=== PATIENT | male | born 1980 | race Hispanic/Latino ===

== ENCOUNTER 2022-07-08 15:58 | Inpatient (IN) | payer OTHER ==
[~2022-07-08] VITALS: Ht 177.8 cm; Wt 86.2 kg
[2022-07-08] MEDS ORDERED: ONDANSETRON 4MG INJ IVP ONE (16:30)
[2022-07-08 16:43] LABS: BASOPHILS % (AUTO) 0.2 % (0.0-5.0); EOSINOPHILS % (AUTO) 0.3 % (0.0-8.0); HEMATOCRIT 46.4 % (42-54); LYMPHOCYTES % (AUTO) 10.9 % (21.0-51.0); MEAN CORPUSCULAR HEMOGLOBIN 29.2 pg (27.0-33.0); MEAN CORPUSCULAR HGB CONC 33.2 g/dL (32.0-36.0); MONOCYTES % (AUTO) 5.9 % (3.0-13.0); NEUTROPHILS % (AUTO) 82.1 % (40.0-77.0); PLATELET COUNT (AUTO) 188 K/uL (130-400); RED BLOOD CELL COUNT(AUTO) 5.27 MIL/uL (4.50-6.20); RED CELL DISTRIBUTION WIDTH 13.3 % (11.0-15.5); WHITE BLOOD COUNT (AUTO) 18.9 K/uL (4.8-10.8)
[2022-07-08 17:03] LABS: POTASSIUM 3.6 mmol/L (3.5-5.1)
[2022-07-08 17:08] LABS: TOTAL PROTEIN, SERUM 6.8 g/dL (6.0-8.3)
[2022-07-08] MEDS ORDERED: MORPHINE 4 MG SYG IVP ONE (18:00)
[2022-07-08] MEDS ORDERED: HYDROMORPHONE 1 MG INJ IVP ONE (19:00)
[2022-07-08] MEDS ORDERED: INSULIN REGULAR IV SCH ×2 (21:30)
[2022-07-08] MEDS ORDERED: HUMAN IV SCH ×2 (21:30)
[2022-07-08] MEDS ORDERED: [UNRECOGNIZED DRUG - OTHER] IV SCH ×2 (21:30)
[2022-07-08] MEDS ORDERED: INSULIN HUMULIN R 100 UNIT/ML 3ML ONE (21:32)
[2022-07-08] MEDS ORDERED: ACETAMINOPHEN 325 MG TAB PO PRN (22:00)
[2022-07-08] MEDS: LACTATED RINGERS 1000ML 1,000 ML IV SCH (23:08)
[2022-07-09] MEDS: MORPHINE 2 MG SYG IV PRN (01:34)
[2022-07-09 02:30] VITALS: BP 155/95
[2022-07-09 03:05] LABS: APPEARANCE,URINE CLEAR (CLEAR); BILIRUBIN,URINE NEGATIVE (NEGATIVE); COLOR,URINE YELLOW (YELLOW); GLUCOSE, URINE (UA) NEGATIVE (NEGATIVE); KETONES,URINE NEGATIVE (NEGATIVE); LEUKOCYTE ESTERASE ,URINE NEGATIVE Leu/uL (NEGATIVE); NITRATE,URINE NEGATIVE (NEGATIVE); OCCULT BLOOD,URINE NEGATIVE (NEGATIVE); PH,URINE 5.5 (5.0-8.0); PROTEIN,URINE 10 mg/dL (NEGATIVE); UROBILINOGEN,URINE 0.2 mg/dL (0.2-1.0)
[2022-07-09 03:11] LABS: AMPHET/METH SCREEN,URINE NEGATIVE (NEGATIVE); BARBITURATE SCREEN, URINE NEGATIVE (NEGATIVE); BENZODIAZEPINES SCREEN,URINE NEGATIVE (NEGATIVE); CANNABINOID SCREEN,URINE POSITIVE (NEGATIVE); COCAINE SCREEN,URINE NEGATIVE (NEGATIVE); OPIATE SCREEN,URINE POSITIVE (NEGATIVE); PHENCYCLIDINE SCREEN,URINE NEGATIVE (NEGATIVE)
[2022-07-09 04:00] VITALS: BP 140/81
[2022-07-09] MEDS: HYDROMORPHONE 0.5 MG SYG (0.5MG/0.5ML) IV PRN ×2 (04:10→08:24)
[2022-07-09] MEDS: LACTATED RINGERS 1000ML 1,000 ML IV SCH ×3 (04:40→18:07)
[2022-07-09 06:15] LABS: BASOPHILS % (AUTO) 0.1 % (0.0-5.0); HEMATOCRIT 49.3 % (42-54); LYMPHOCYTES % (AUTO) 5.1 % (21.0-51.0); MEAN CORPUSCULAR HGB CONC 33.1 g/dL (32.0-36.0); MEAN CORPUSCULAR VOLUME 87.6 fL (79-99); MONOCYTES % (AUTO) 5.5 % (3.0-13.0); NEUTROPHILS % (AUTO) 88.8 % (40.0-77.0); PLATELET COUNT (AUTO) 206 K/uL (130-400); RED BLOOD CELL COUNT(AUTO) 5.63 MIL/uL (4.50-6.20); RED CELL DISTRIBUTION WIDTH 13.5 % (11.0-15.5); WHITE BLOOD COUNT (AUTO) 15.7 K/uL (4.8-10.8)
[2022-07-09 06:19] LABS: HEMOGLOBIN A1C 5.6 % (4.0-6.0)
[2022-07-09 06:27] LABS: CREATININE 0.8 mg/dL (0.5-1.5); MAGNESIUM 1.7 mg/dL (1.80-2.40); PHOSPHORUS 3.5 mg/dL (2.5-4.9)
[2022-07-09 08:00] VITALS: BP 142/94
[2022-07-09] MEDS: FAMOTIDINE 20MG VIAL IV SCH ×2 (08:23→20:13)
[2022-07-09] MEDS: ENOXAPARIN SODIUM 40 MG/0.4 ML SYRINGE SQ SCH (08:23)
[2022-07-09] MEDS ORDERED: HYDROMORPHONE 0.5 MG SYG (0.5MG/0.5ML) IVP ONE (10:00)
[2022-07-09 12:00] VITALS: BP 151/96
[2022-07-09] MEDS: HYDROMORPHONE 1 MG INJ IVP PRN ×3 (15:01→23:50)
[2022-07-09 16:00] VITALS: BP 154/97
[2022-07-09 20:00] VITALS: BP 157/90
[2022-07-10] VITALS: BP 153/91
[2022-07-10] MEDS: LACTATED RINGERS 1000ML 1,000 ML IV SCH (00:40)
[2022-07-10] MEDS: HYDROMORPHONE 1 MG INJ IVP PRN ×4 (03:53→23:05)
[2022-07-10 04:00] VITALS: BP 146/84
[2022-07-10 05:49] LABS: BASOPHILS % (AUTO) 0.4 % (0.0-5.0); EOSINOPHILS % (AUTO) 0.4 % (0.0-8.0); LYMPHOCYTES % (AUTO) 4.8 % (21.0-51.0); MEAN CORPUSCULAR HEMOGLOBIN 29.6 pg (27.0-33.0); MEAN CORPUSCULAR HGB CONC 32.9 g/dL (32.0-36.0); MEAN CORPUSCULAR VOLUME 89.9 fL (79-99); MONOCYTES % (AUTO) 5.4 % (3.0-13.0); NEUTROPHILS % (AUTO) 88.5 % (40.0-77.0); PLATELET COUNT (AUTO) 171 K/uL (130-400); RED BLOOD CELL COUNT(AUTO) 5.67 MIL/uL (4.50-6.20); RED CELL DISTRIBUTION WIDTH 13.7 % (11.0-15.5); WHITE BLOOD COUNT (AUTO) 22.3 K/uL (4.8-10.8)
[2022-07-10 06:13] LABS: ALBUMIN 2.8 g/dL (3.5-5.0); CREATININE 1.1 mg/dL (0.5-1.5); MAGNESIUM 1.6 mg/dL (1.80-2.40); PHOSPHORUS 2.5 mg/dL (2.5-4.9); POTASSIUM 3.9 mmol/L (3.5-5.1)
[2022-07-10 08:00] VITALS: BP 146/95
[2022-07-10] MEDS: ENOXAPARIN SODIUM 40 MG/0.4 ML SYRINGE SQ SCH (08:41)
[2022-07-10] MEDS: FAMOTIDINE 20MG VIAL IV SCH ×2 (08:41→19:58)
[2022-07-10 12:00] VITALS: BP 151/97
[2022-07-10 16:00] VITALS: BP 141/90
[2022-07-10] MEDS: ACETAMINOPHEN 325 MG TAB PO PRN (16:01)
[2022-07-10] MEDS: MORPHINE 2 MG SYG IV PRN (18:40)
[2022-07-10 20:00] VITALS: BP 144/88
[2022-07-11] VITALS (12 sets, daily range): BP systolic 100–155; BP diastolic 43–103
[2022-07-11] MEDS: HYDROMORPHONE 1 MG INJ IVP PRN ×4 (03:59→19:59)
[2022-07-11 05:19] LABS: BASOPHILS % (AUTO) 0.2 % (0.0-5.0); EOSINOPHILS % (AUTO) 0.1 % (0.0-8.0); HEMATOCRIT 42.8 % (42-54); LYMPHOCYTES % (AUTO) 4.7 % (21.0-51.0); MEAN CORPUSCULAR HGB CONC 32.7 g/dL (32.0-36.0); MEAN CORPUSCULAR VOLUME 88.6 fL (79-99); MONOCYTES % (AUTO) 5.3 % (3.0-13.0); NEUTROPHILS % (AUTO) 89.1 % (40.0-77.0); PLATELET COUNT (AUTO) 141 K/uL (130-400); RED BLOOD CELL COUNT(AUTO) 4.83 MIL/uL (4.50-6.20); RED CELL DISTRIBUTION WIDTH 13.4 % (11.0-15.5); WHITE BLOOD COUNT (AUTO) 18.8 K/uL (4.8-10.8)
[2022-07-11 05:30] LABS: ALBUMIN 2.3 g/dL (3.5-5.0); CREATININE 0.7 mg/dL (0.5-1.5); POTASSIUM 3.8 mmol/L (3.5-5.1); TOTAL PROTEIN, SERUM 5.9 g/dL (6.0-8.3)
[2022-07-11 07:38] LABS: INR 0.96 (0.85-1.15); PROTHROMBIN TIME 10.5 SEC (9.6-11.6)
[2022-07-11 07:39] LABS: PARTIAL THROMBOPLASTIN TIME 36.7 SEC (26.3-35.5)
[2022-07-11] MEDS ORDERED: IOHEXOL-350 50ML VIAL IV ONE (07:50)
[2022-07-11] MEDS ORDERED: 0.9%NACL 50ML IV SCH (08:00)
[2022-07-11] MEDS: FAMOTIDINE 20MG VIAL IV SCH ×2 (08:29→19:59)
[2022-07-11] MEDS ORDERED: ZOSYN 3.375GM +NS 50ML IVPB SCH (10:00)
[2022-07-11] MEDS ORDERED: PROPOFOL 10 MG/ML 20ML VIAL IV ONE ×2 (11:03)
[2022-07-11] MEDS ORDERED: LIDOCAINE PF 100MG/5ML (2%) SYRINGE 5ML ONE (11:03)
[2022-07-11] MEDS ORDERED: FENTANYL CITRATE PF 50 MCG/1 ML 2ML VIAL ONE (11:26)
[2022-07-11] MEDS: 0.9%NACL 1000ML 1,000 ML IV SCH ×2 (13:21→21:59)
[2022-07-11] MEDS: ENOXAPARIN SODIUM 40 MG/0.4 ML SYRINGE SQ SCH (13:21)
[2022-07-11] MEDS: ZOSYN 3.375GM +NS 50ML IVPB SCH (21:22)
[2022-07-12] MEDS: HYDROMORPHONE 1 MG INJ IVP PRN ×4 (00:21→22:19)
[2022-07-12 04:15] VITALS: BP 139/91
[2022-07-12] MEDS: ZOSYN 3.375GM +NS 50ML IVPB SCH ×3 (04:15→20:28)
[2022-07-12 05:28] LABS: BASOPHILS % (AUTO) 0.4 % (0.0-5.0); EOSINOPHILS % (AUTO) 0.2 % (0.0-8.0); HEMATOCRIT 38.3 % (42-54); LYMPHOCYTES % (AUTO) 6.4 % (21.0-51.0); MEAN CORPUSCULAR HGB CONC 32.6 g/dL (32.0-36.0); MEAN CORPUSCULAR VOLUME 88.9 fL (79-99); NEUTROPHILS % (AUTO) 85.1 % (40.0-77.0); PLATELET COUNT (AUTO) 141 K/uL (130-400); RED BLOOD CELL COUNT(AUTO) 4.31 MIL/uL (4.50-6.20); RED CELL DISTRIBUTION WIDTH 13.4 % (11.0-15.5); WHITE BLOOD COUNT (AUTO) 16.2 K/uL (4.8-10.8)
[2022-07-12 05:44] LABS: ALBUMIN 1.9 g/dL (3.5-5.0); CREATININE 0.6 mg/dL (0.5-1.5); POTASSIUM 3.2 mmol/L (3.5-5.1); TOTAL PROTEIN, SERUM 5.7 g/dL (6.0-8.3)
[2022-07-12] MEDS: 0.9%NACL 1000ML 1,000 ML IV SCH ×2 (07:56→17:23)
[2022-07-12] MEDS: FAMOTIDINE 20MG VIAL IV SCH ×2 (07:56→20:28)
[2022-07-12] MEDS: ENOXAPARIN SODIUM 40 MG/0.4 ML SYRINGE SQ SCH (07:57)
[2022-07-12 08:15] VITALS: BP 147/76
[2022-07-12] MEDS: POTASSIUM CHLORIDE 20MEQ/100ML 100 ML IV PRN ×3 (11:08→23:15)
[2022-07-12 12:00] VITALS: BP 147/89
[2022-07-12 16:00] VITALS: BP 149/91
[2022-07-12 19:57] VITALS: BP 149/91
[2022-07-12 23:06] VITALS: BP 157/96
[2022-07-13] MEDS: POTASSIUM CHLORIDE 20MEQ/100ML 100 ML IV PRN ×2 (02:21→06:20)
[2022-07-13] MEDS: HYDROMORPHONE 1 MG INJ IVP PRN ×5 (02:22→21:32)
[2022-07-13] MEDS: 0.9%NACL 1000ML 1,000 ML IV SCH ×3 (02:22→12:44)
[2022-07-13 04:02] VITALS: BP 148/92
[2022-07-13] MEDS: ZOSYN 3.375GM +NS 50ML IVPB SCH ×3 (04:41→20:06)
[2022-07-13 05:54] LABS: BASOPHILS % (AUTO) 0.6 % (0.0-5.0); EOSINOPHILS % (AUTO) 0.6 % (0.0-8.0); LYMPHOCYTES % (AUTO) 8.3 % (21.0-51.0); MEAN CORPUSCULAR HGB CONC 32.9 g/dL (32.0-36.0); MEAN CORPUSCULAR VOLUME 88.2 fL (79-99); MONOCYTES % (AUTO) 10.4 % (3.0-13.0); NEUTROPHILS % (AUTO) 76.5 % (40.0-77.0); PLATELET COUNT (AUTO) 169 K/uL (130-400); RED BLOOD CELL COUNT(AUTO) 4.31 MIL/uL (4.50-6.20); RED CELL DISTRIBUTION WIDTH 13.3 % (11.0-15.5); WHITE BLOOD COUNT (AUTO) 17.7 K/uL (4.8-10.8)
[2022-07-13 06:14] LABS: CREATININE 0.7 mg/dL (0.5-1.5); MAGNESIUM 2.4 mg/dL (1.80-2.40); POTASSIUM 3.5 mmol/L (3.5-5.1); TOTAL PROTEIN, SERUM 5.9 g/dL (6.0-8.3)
[2022-07-13 07:30] VITALS: BP 152/90
[2022-07-13] MEDS: ENOXAPARIN SODIUM 40 MG/0.4 ML SYRINGE SQ SCH (09:15)
[2022-07-13] MEDS: FAMOTIDINE 20MG VIAL IV SCH ×2 (09:15→20:06)
[2022-07-13 11:30] VITALS: BP 136/99
[2022-07-13] MEDS: POTASSIUM CHLORIDE 20 MEQ/100 ML BAG IV SCH (11:30)
[2022-07-13 15:30] VITALS: BP 139/96
[2022-07-13 20:00] VITALS: BP 154/89
[2022-07-14] VITALS (25 sets, daily range): BP systolic 139–165; BP diastolic 80–101
[2022-07-14] MEDS: HYDROMORPHONE 1 MG INJ IVP PRN ×2 (02:16→06:53)
[2022-07-14] MEDS: ZOSYN 3.375GM +NS 50ML IVPB SCH ×3 (05:08→20:04)
[2022-07-14] MEDS: 0.9%NACL 1000ML 1,000 ML IV SCH ×3 (05:08→21:30)
[2022-07-14 05:50] LABS: HEMATOCRIT 37.7 % (42-54); MEAN CORPUSCULAR HEMOGLOBIN 28.9 pg (27.0-33.0); MEAN CORPUSCULAR HGB CONC 32.6 g/dL (32.0-36.0); MEAN CORPUSCULAR VOLUME 88.5 fL (79-99); RED BLOOD CELL COUNT(AUTO) 4.26 MIL/uL (4.50-6.20); RED CELL DISTRIBUTION WIDTH 13.7 % (11.0-15.5); WHITE BLOOD COUNT (AUTO) 19.6 K/uL (4.8-10.8)
[2022-07-14 06:29] LABS: ALBUMIN 1.9 g/dL (3.5-5.0); BILIRUBIN,DIRECT 0.3 mg/dL (0.0-0.3); CREATININE 0.7 mg/dL (0.5-1.5); MAGNESIUM 2.3 mg/dL (1.80-2.40); POTASSIUM 3.5 mmol/L (3.5-5.1)
[2022-07-14] MEDS: ENOXAPARIN SODIUM 40 MG/0.4 ML SYRINGE SQ SCH (07:45)
[2022-07-14] MEDS: POTASSIUM CHLORIDE 20 MEQ/100 ML BAG IV SCH (08:47)
[2022-07-14] MEDS: FAMOTIDINE 20MG VIAL IV SCH ×2 (08:48→20:04)
[2022-07-14] MEDS ORDERED: LIDOCAINE PF 100MG/5ML (2%) SYRINGE 5ML ONE (09:41)
[2022-07-14] MEDS ORDERED: GLYCOPYRROLATE 1 MG/5 ML SYRINGE ONE (09:41)
[2022-07-14] MEDS ORDERED: PROPOFOL 10 MG/ML 20ML VIAL IV ONE (09:41)
[2022-07-14] MEDS ORDERED: MIDAZOLAM HCL 1 MG/ML 2ML VIAL ONE (09:42)
[2022-07-14] MEDS ORDERED: FENTANYL CITRATE PF 50 MCG/1 ML 2ML VIAL ONE ×3 (09:42→11:22)
[2022-07-14] MEDS ORDERED: ROCURONIUM 10MG/1ML SYR 10 MG/ML ML ONE (09:42)
[2022-07-14] MEDS ORDERED: PHENYLEPHRINE HCL 10 MG/ML 1ML VIAL IV ONE (10:00)
[2022-07-14] MEDS ORDERED: LIDOCAINE HCL 1% 20 ML VIAL ONE (10:04)
[2022-07-14] MEDS ORDERED: BUPIVACAINE/PF 0.25% 30ML VIAL IJ ONE (10:04)
[2022-07-14] MEDS ORDERED: NEOSTIGMINE 5MG/5ML SYR IV ONE (10:45)
[2022-07-14] MEDS ORDERED: ONDANSETRON 4MG INJ ONE (10:54)
[2022-07-14] MEDS: MORPHINE 2 MG SYG IVP PRN ×3 (14:07→23:11)
[2022-07-14] MEDS ORDERED: ONDANSETRON 4MG INJ IVP PRN (16:00)
[2022-07-14] MEDS: ONDANSETRON 4MG INJ IV PRN (16:30)
[2022-07-15] VITALS (7 sets, daily range): BP systolic 144–153; BP diastolic 63–100
[2022-07-15] MEDS: ZOSYN 3.375GM +NS 50ML IVPB SCH ×3 (04:12→20:33)
[2022-07-15] MEDS: MORPHINE 2 MG SYG IVP PRN ×3 (04:14→21:49)
[2022-07-15 05:27] LABS: HEMATOCRIT 39.3 % (42-54); MEAN CORPUSCULAR HGB CONC 33.3 g/dL (32.0-36.0); MEAN CORPUSCULAR VOLUME 86.9 fL (79-99); RED BLOOD CELL COUNT(AUTO) 4.52 MIL/uL (4.50-6.20); RED CELL DISTRIBUTION WIDTH 13.6 % (11.0-15.5); WHITE BLOOD COUNT (AUTO) 19.2 K/uL (4.8-10.8)
[2022-07-15 05:47] LABS: BILIRUBIN,DIRECT 0.2 mg/dL (0.0-0.3); CREATININE 0.7 mg/dL (0.5-1.5); MAGNESIUM 2.3 mg/dL (1.80-2.40); POTASSIUM 3.4 mmol/L (3.5-5.1); TOTAL PROTEIN, SERUM 6.3 g/dL (6.0-8.3)
[2022-07-15] MEDS: POTASSIUM CHLORIDE 20MEQ/100ML 100 ML IV PRN (06:41)
[2022-07-15] MEDS: 0.9%NACL 1000ML 1,000 ML IV SCH ×3 (07:30→20:34)
[2022-07-15] MEDS: ONDANSETRON 4MG INJ IV PRN (08:34)
[2022-07-15] MEDS: FAMOTIDINE 20MG VIAL IV SCH ×2 (08:34→20:33)
[2022-07-15] MEDS: ENOXAPARIN SODIUM 40 MG/0.4 ML SYRINGE SQ SCH (08:40)
[2022-07-15] MEDS: POTASSIUM CHLORIDE 20 MEQ/100 ML BAG IV SCH (10:00)
[2022-07-15] MEDS ORDERED: KCL 20 MEQ ERTAB PO ONE (10:00)
[2022-07-15] MEDS ORDERED: POTASSIUM CHLORIDE 10% ELIXIR 20 MEQ/15 ML UDCUP PO PRN (20:00)
[2022-07-16] MEDS: 0.9%NACL 1000ML 1,000 ML IV SCH ×2 (02:44→05:34)
[2022-07-16] MEDS: MORPHINE 2 MG SYG IVP PRN ×4 (03:09→21:10)
[2022-07-16 03:45] VITALS: BP 148/90
[2022-07-16] MEDS: ZOSYN 3.375GM +NS 50ML IVPB SCH ×3 (03:57→21:09)
[2022-07-16 04:35] LABS: HEMATOCRIT 38.2 % (42-54); MEAN CORPUSCULAR HEMOGLOBIN 29.3 pg (27.0-33.0); MEAN CORPUSCULAR HGB CONC 33.5 g/dL (32.0-36.0); MEAN CORPUSCULAR VOLUME 87.4 fL (79-99); RED BLOOD CELL COUNT(AUTO) 4.37 MIL/uL (4.50-6.20); RED CELL DISTRIBUTION WIDTH 13.6 % (11.0-15.5); WHITE BLOOD COUNT (AUTO) 17.9 K/uL (4.8-10.8)
[2022-07-16 05:13] LABS: ALANINE AMINOTRANSFERASE 19 U/L (12-78); ALBUMIN 2.2 g/dL (3.5-5.0); ASPARTATE AMINOTRANSFERASE 22 U/L (10-37); BILIRUBIN,DIRECT 0.2 mg/dL (0.0-0.3); CARBON DIOXIDE 25 mmol/L (21-32); CHLORIDE 103 mmol/L (101-111); CREATININE 0.7 mg/dL (0.5-1.5); GLOMERULAR FILTR. RATE CALC 119 mL/min (>90); GLUCOSE,RANDOM 100 mg/dL (70-105); POTASSIUM 3.6 mmol/L (3.5-5.1); SODIUM SERUM 136 mmol/L (136-145); TOTAL PROTEIN, SERUM 6.3 g/dL (6.0-8.3); UREA NITROGEN, BLOOD 8 mg/dL (7-18)
[2022-07-16 05:23] LABS: LIPASE < 50 U/L (114-286)
[2022-07-16] MEDS: KCL 20 MEQ ERTAB PO PRN ×2 (05:34→15:49)
[2022-07-16 07:30] VITALS: BP 143/97
[2022-07-16] MEDS: FAMOTIDINE 20MG VIAL IV SCH ×2 (09:02→21:09)
[2022-07-16] MEDS: ENOXAPARIN SODIUM 40 MG/0.4 ML SYRINGE SQ SCH (09:03)
[2022-07-16] MEDS: POTASSIUM CHLORIDE 20 MEQ/100 ML BAG IV SCH (09:12)
[2022-07-16 11:30] VITALS: BP 152/93
[2022-07-16 15:30] VITALS: BP 143/95
[2022-07-16 20:23] VITALS: BP 151/86
[2022-07-16] MEDS: DOCUSATE SODIUM 100 MG CAP PO SCH (21:09)
[2022-07-16 23:35] VITALS: BP 144/94
[2022-07-17 03:37] VITALS: BP 142/85
[2022-07-17] MEDS: ZOSYN 3.375GM +NS 50ML IVPB SCH ×3 (04:15→20:34)
[2022-07-17 05:35] LABS: BASOPHILS % (AUTO) 0.2 % (0.0-5.0); EOSINOPHILS % (AUTO) 3.3 % (0.0-8.0); HEMATOCRIT 41.9 % (42-54); LYMPHOCYTES % (AUTO) 10.2 % (21.0-51.0); MEAN CORPUSCULAR HEMOGLOBIN 28.8 pg (27.0-33.0); MEAN CORPUSCULAR HGB CONC 33.2 g/dL (32.0-36.0); MEAN CORPUSCULAR VOLUME 86.9 fL (79-99); MONOCYTES % (AUTO) 8.2 % (3.0-13.0); NEUTROPHILS % (AUTO) 69.7 % (40.0-77.0); PLATELET COUNT (AUTO) 270 K/uL (130-400); RED BLOOD CELL COUNT(AUTO) 4.82 MIL/uL (4.50-6.20); RED CELL DISTRIBUTION WIDTH 13.5 % (11.0-15.5); WHITE BLOOD COUNT (AUTO) 17.5 K/uL (4.8-10.8)
[2022-07-17 06:01] LABS: CREATININE 0.9 mg/dL (0.5-1.5); MAGNESIUM 1.9 mg/dL (1.80-2.40); POTASSIUM 3.9 mmol/L (3.5-5.1)
[2022-07-17 08:00] VITALS: BP 139/87
[2022-07-17] MEDS: FAMOTIDINE 20MG VIAL IV SCH ×2 (09:25→20:34)
[2022-07-17] MEDS: DOCUSATE SODIUM 100 MG CAP PO SCH ×2 (09:25→20:34)
[2022-07-17] MEDS: ENOXAPARIN SODIUM 40 MG/0.4 ML SYRINGE SQ SCH (09:42)
[2022-07-17] MEDS: ACETAMINOPHEN 325 MG TAB PO PRN (09:59)
[2022-07-17] MEDS: POTASSIUM CHLORIDE 20 MEQ/100 ML BAG IV SCH (10:00)
[2022-07-17 12:00] VITALS: BP 131/94
[2022-07-17 16:00] VITALS: BP 154/77
[2022-07-17 20:19] VITALS: BP 139/83
[2022-07-17 23:44] VITALS: BP 134/83
[2022-07-18 03:29] VITALS: BP 140/85
[2022-07-18] MEDS: ZOSYN 3.375GM +NS 50ML IVPB SCH ×2 (04:11→12:51)
[2022-07-18 05:18] LABS: BASOPHILS % (AUTO) 0.9 % (0.0-5.0); HEMATOCRIT 41.5 % (42-54); LYMPHOCYTES % (AUTO) 13.1 % (21.0-51.0); MEAN CORPUSCULAR HEMOGLOBIN 28.9 pg (27.0-33.0); MEAN CORPUSCULAR HGB CONC 33.3 g/dL (32.0-36.0); MEAN CORPUSCULAR VOLUME 86.8 fL (79-99); MONOCYTES % (AUTO) 6.7 % (3.0-13.0); NEUTROPHILS % (AUTO) 68.7 % (40.0-77.0); PLATELET COUNT (AUTO) 309 K/uL (130-400); RED BLOOD CELL COUNT(AUTO) 4.78 MIL/uL (4.50-6.20); RED CELL DISTRIBUTION WIDTH 13.4 % (11.0-15.5); WHITE BLOOD COUNT (AUTO) 15.4 K/uL (4.8-10.8)
[2022-07-18 05:49] LABS: ALBUMIN 2.4 g/dL (3.5-5.0); CREATININE 0.9 mg/dL (0.5-1.5); MAGNESIUM 2.1 mg/dL (1.80-2.40); POTASSIUM 3.7 mmol/L (3.5-5.1); TOTAL PROTEIN, SERUM 6.9 g/dL (6.0-8.3)
[2022-07-18 08:00] VITALS: BP 129/84
[2022-07-18] MEDS: FAMOTIDINE 20MG VIAL IV SCH (08:36)
[2022-07-18] MEDS: DOCUSATE SODIUM 100 MG CAP PO SCH (08:36)
[2022-07-18] MEDS: ENOXAPARIN SODIUM 40 MG/0.4 ML SYRINGE SQ SCH (08:37)
[2022-07-18] MEDS: POTASSIUM CHLORIDE 20 MEQ/100 ML BAG IV SCH (10:08)
[2022-07-18 11:55] VITALS: BP_SYST 112; BP_SYST 131; BP_DIAS 67; BP_DIAS 95
[2022-07-18 16:00] VITALS: BP 134/76
== END 2022-07-18 17:25 | disposition home or self-care (01) | DRG 417 ==
LOC: EDH 15:58 → EDHIP 15:59 → 3AH 07-09 02:18
PROVIDERS: ADMIT Internal Medicine; ATTEND Internal Medicine
PROC: 0DJ08ZZ Inspection of Upper Intestinal Tract, Via Natural or Artificial Opening Endoscopic (ICD-10-PCS; 2022-07-11)
PROC: 0FT44ZZ Resection of Gallbladder, Percutaneous Endoscopic Approach (ICD-10-PCS; principal; 2022-07-14 10:06)
DX: K80.50 Calculus of bile duct without cholangitis or cholecystitis without obstruction (principal); K85.10 Biliary acute pancreatitis without necrosis or infection; K29.00 Acute gastritis without bleeding; Z20.822 Contact with and (suspected) exposure to COVID-19; E78.1 Pure hyperglyceridemia; F17.210 Nicotine dependence, cigarettes, uncomplicated; K66.0 Peritoneal adhesions (postprocedural) (postinfection)
CPT/HCPCS: 36415; 43259; 71046; 74176; 74181; 76705; 80048; 80053; 80076; 80305; 81003; 82948; 83036; 83605; 83690; 83735; 84100; 84132; 84145; 84478; 85025; 85027; 85610; 85730; 87040; 87077; 87186; 87635; 99291; 99292; A4606; G0378; J1170; J1650; J1815; J2001; J2250; J2270; J2370; J2405; J2543; J2704; J2710; J3010; J3480; J3490; J7030; Q9967